=== PATIENT | female | born 1950 | race Caucasian/White ===

== ENCOUNTER 2018-02-21 08:46 | Emergency (ER) | payer OTHER, MEDICARE ==
[~2018-02-21] VITALS: Ht 162.6 cm; Wt 68.0 kg
[~2018-02-21 08:46] MED LIST: ADULT LOW DOSE81 MG PO; ALPRAZOLAM 0.0.25 M1 PO; CELEXA 20 MG TA20 M1 PO; FLECAINIDE ACE100 MG PO; NORCO 5-325 TA1 EACH PO; VERAPAMIL ER120 MG PO; ZOCOR 20 MG TAB20 M1 PO
[2018-02-21] MEDS ORDERED: PREDNISONE 20 M20 MG PO (10:53)
[2018-02-21] MEDS ORDERED: HYDROCODONE-AP1 EAC6 PO (10:53)
[2018-02-21] MEDS ORDERED: CYCLOBENZAPRINE5 MG PO (10:53)
[2018-02-21 11:09] VITALS: BP 116/72
== END 2018-02-21 11:11 | disposition home or self-care (01) ==
LOC: ER 08:46
DX: M51.26 Other intervertebral disc displacement, lumbar region (principal); E78.5 Hyperlipidemia, unspecified

== ENCOUNTER → 2018-04-02 | Outpatient (CLI) | payer OTHER, MEDICARE ==
[~2018-04-02] MED LIST changes: +CYCLOBENZAPRINE5 MG PO; +HYDROCODONE-AP1 EAC6 PO; +PREDNISONE 20 M20 MG PO
--- NOTE | ~2018-04-02 | 2DMMODE ---
[facility] [place] [address] 2 D/M-MODE ECHOCARDIOGRAM Name: EMILIANA MUNOZ Room #: REG [facility]#: [id number] Admission: 04/02/18 Attend Phys: Ahmet De Leon MD Discharge: Date of : 46 Date of Service: 04/02/18 1027 Report #: [id number] THIS REPORT FOR: //name// APPROVED REPORT Study performed: 04/02/2018 09:24:53 EXAM: Comprehensive 2D, Doppler, and color-flow Echocardiogram BSA: 1.75 HR: 80 bpm BP: 113/84 mmHg Other Information Study Quality: Good Indications SVT 2D Dimensions RVDd: 27.75 mm LVEF(%): 70.65 (>50%) IVSd: 9.34 (7-11mm) LVOT Diam: 21.78 (18-24mm) LVDd: 44.35 mm PWd: 9.50 (7-11mm) Ascending Ao: 29.67 (22-36mm) LVDs: 26.68 (25-40mm) Aortic Root: 27.12 mm IVC: 15.00 mm Lawson's LVEF: 70.65 % Volumes Left Atrial Volume (Systole) Single Plane 4CH: 41.98 mL Single Plane 2CH: 46.72 mL LA ESV Index: 28.00 mL/m2 Aortic Valve AoV Peak Ambrocio.: 1.21 m/s AO Peak Gr.: 5.86 mmHg LVOT Max P.96 mmHg LVOT Max V: 1.00 m/s DAVID Vmax: 3.06 cm2 Mitral Valve E/A Ratio: 1.2 MV Decel. Time: 206.87 ms MV E Max Ambrocio.: 0.67 m/s MV A Ambrocio.: 0.54 m/s MV PHT: 59.99 ms [facility] [place] [address] 2 D/M-MODE ECHOCARDIOGRAM Name: EMILIANA MUNOZ Room #: [facility]#: [id number] Admission: 04/02/18 Attend Phys: Ahmet De Leon MD Discharge: Date of : 46 Date of Service: 04/02/18 1027 Report #: [id number] IVRT: 76.12 ms Pulmonary Valve PV Peak Ambrocio.: 0.89 m/s PV Peak Gr.: 3.17 mmHg Pulmonary Vein P Vein S: 0.70 m/s P Vein A: 0.33 m/s P Vein D: 0.37 m/s P Vein A Dur.: 72.7 msec P Vein S/D Ratio: 1.89 Tricuspid Valve TR Peak Ambrocio.: 1.97 m/s RAP Estimate: 5.00 mmHg TR Peak Gr.: 15.60 mmHg PA Pressure: 21.00 mmHg Left Ventricle The left ventricle is normal size. There is normal left ventricular wall thickness. The left ventricular systolic function is normal. The left ventricular ejection fraction is within the normal range. LVEF is 60-65%. Moderate diastolic dysfunction is present (pseudonormal filling). Right Ventricle The right ventricle is normal size. The right ventricular systolic function is normal. Atria The left atrium size is normal. The right atrium size is normal. Aortic Valve The aortic valve is normal in structure. Mild aortic regurgitation. There is no aortic valvular stenosis. Mitral Valve The mitral valve is normal in structure. Mild mitral regurgitation. No evidence of mitral valve stenosis. Tricuspid Valve The tricuspid valve is normal in structure. Trace tricuspid regurgitation. PAP is estimated at 21 mmHg. Pulmonic Valve The pulmonary valve is normal in structure. Mild pulmonic regurgitation. [address] [address] 2 D/M-MODE ECHOCARDIOGRAM Name: TAMMYEMILIANA [id number] Admission: 04/02/18 Attend Phys: Ahmet De Leon MD Discharge: Date of : 46 Date of Service: 04/02/18 1027 Report #: [id number] Great Vessels The aortic root is normal in size. IVC is normal in size and collapses >50% with inspiration. Pericardium There is no pericardial effusion. <Conclusion> The left ventricle is normal size. There is normal left ventricular wall thickness. The left ventricular systolic function is normal. Moderate diastolic dysfunction is present (pseudonormal filling). The right ventricle is normal size. The left atrium size is normal. Mild aortic regurgitation. Mild mitral regurgitation. Trace tricuspid regurgitation. PAP is estimated at 21 mmHg. <ELECTRONICALLY SIGNED> By: Ahmet De Leon MD 04/02/18 1027 1027 1027 Ahmet De Leon MD /INF
== END ==
LOC: CV 08:13
DX: I08.0 Rheumatic disorders of both mitral and aortic valves (principal); I47.1 Supraventricular tachycardia

== ENCOUNTER → 2020-03-30 | Outpatient (CLI) | payer OTHER, MEDICARE | LOC: SJCVC 10:46 | PROVIDERS: ATTEND Internal Medicine Cardiovascular Disease | DX: R60.9 Edema, unspecified (principal); I10 Essential (primary) hypertension; I47.9 Paroxysmal tachycardia, unspecified ==

== ENCOUNTER → 2021-03-28 | Outpatient (CLI) | payer OTHER, MEDICARE | LOC: SJCVCIMAG 09:57 | PROVIDERS: ATTEND Internal Medicine Cardiovascular Disease | DX: I34.0 Nonrheumatic mitral (valve) insufficiency (principal); I47.9 Paroxysmal tachycardia, unspecified; E78.00 Pure hypercholesterolemia, unspecified; R60.9 Edema, unspecified; I10 Essential (primary) hypertension; R00.2 Palpitations; Z79.899 Other long term (current) drug therapy; Z82.49 Family history of ischemic heart disease and other diseases of the circulatory system ==